=== PATIENT | female | born 1950 | race Caucasian/White ===

== ENCOUNTER 2020-06-11 15:02 | Outpatient (CLI) | payer MEDICARE, MEDICAID, SELFPAY ==
--- NOTE | 2020-06-11 14:45 | DI.RAD_ITS ---
EXAM: XR SHOULDER RT COMPLETE 2+V CLINICAL HISTORY: right shoulder pain TECHNIQUE: COMPARISON: No exams were available for comparison FINDINGS: Two views were obtained. There is severe loss of the cartilaginous joint space of the glenohumeral j oint. There is subchondral sclerosis and flattening of the adjacent bones. There are very prominent marginal osteophytes of the acetabulum and humeral head. Mild hypertrophic degenerative changes of the AC joint noted as well. IMPRESSION: Severe DJD glenohumeral joint. RADIATION DOSE DELIVERED: Total DLP
== END 2020-06-11 15:03 | disposition home or self-care (01) ==
LOC: DIORS 15:03
PROVIDERS: PCP Neuromusculoskeletal Medicine & OMM; Referring Provider Neuromusculoskeletal Medicine & OMM; Visit Provider Student in an Organized Health Care Education/Training Program
DX: M19.011 Primary osteoarthritis, right shoulder (principal); M25.511 Pain in right shoulder; M75.21 Bicipital tendinitis, right shoulder; I10 Essential (primary) hypertension
CPT/HCPCS: 99203; 73030

== ENCOUNTER 2021-10-06 08:00 | Day surgery (SDC) | payer MEDICARE, MEDICAID, SELFPAY ==
[2021-10-06] MEDS: Tropicam./Phenyleph. (1/2.5%) 5 ML BTL OD ×3 (08:43→08:53)
[2021-10-06 08:49] VITALS: BP 144/81; PULSE 94; RESP 18; TEMP 36.1; O2SAT 99
--- NOTE | 2021-10-06 09:23 | W.ANESPRE ---
General Info Date of Service Date Performed: 10/06/21 Height: 5 ft 2 in Weight: 124.3 kg Body Mass Index (BMI): 50.1 Surgical Procedure: Operation Date: 10/06/21 10:40 Proposed Procedure Side Surgeon p Cataract Extraction with IOL Implant Right Nito Kelly MD Meds Allergies and Home Medications Allergies Allergy/AdvReac Type Severity Reaction Status Date / Time Penicillins Allergy Intermediate Verified 10/06/21 08:41 Home Medication Medication Instructions Recorded bupropion HCl 300 mg 24 hr tablet, 300 mg PO QAM 06/11/20 extended release duloxetine 60 mg capsule,delayed 60 mg PO DAILY 06/11/20 release oxybutynin chloride 5 mg tablet 5 mg PO DAILY 06/11/20 pantoprazole 40 mg tablet,delayed 40 mg PO DAILY 06/11/20 release Current Visit Medications: Current Medications Generic Name Dose Route Start Last Admin Trade Name Freq PRN Reason Stop Dose Admin Acetaminophen 1,000 mg 10/06/21 06:00 Acetaminophen 500 Mg Tab PO Q4H PRN PRN Miscellaneous Medication 0 ml 10/06/21 06:00 Prednisolone 1%, Moxifloxacin 0.5%, Nepafenac 0.1% 5ml Btl OD DIRECTED DIGNA Miscellaneous Medication 0 ml 10/06/21 06:00 10/06/21 08:53 Tropicam./Phenyleph. 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 Spontaneous ecchymosis R23.3 Degenerative arthritis of right shoulder region M19.011 Biceps tendonitis on right M75.21 Medical History Medical History Hx of abscess of skin and subcutaneous tissue glutes Surgical History Surgical History (Updated 10/06/21 @ 08:51 by Marie Presley) History of carpal tunnel release of both wrists Hx of cholecystectomy Hx of shoulder replacement Hx of tubal ligation Tobacco Smoking/Tobacco Use Status: Never Alcohol Alcohol Intake: never Substance Use Substance use: Never Substance use type: does not use Vital Signs and Lab Results Vital Signs Most Recent Vital Signs in EMR: Most Recent Vital Signs Temp Pulse Resp BP Pulse Ox 36.1 C L 94 H 18 144/81 H 99 10/06/21 08:49 10/06/21 08:49 10/06/21 08:49 10/06/21 08:49 10/06/21 08:49 Lab Results Blood Type / Crossmatch: No Data to Display Complete Blood Count: No Data to Display Complete Metabolic Panel: No Data to Display Liver Function Panel: No Data to Display Coagulation Panel: No Data to Display Cardiac Panel: No Data to Display Arterial Blood Gas: No Data to Display Venous Blood Gas: No Data to Display Pancreas Panel: No Data to Display Thyroid Panel: No Data to Display Infectious Disease: No Data to Display Blood Cultures: No Data to Display Toxicology Panel: No Data to Display Anesthesia Assessment and Plan Anesthesia History Personal History: No History of Anesthesia Complications Family History: No Family History of Anesthesia Complications Exercise Tolerance Exercise Tolerance: Metabolic Equivalents<4 Pertinent Negatives Pertinent Negatives: No Symptoms of GERD, No Major Cardiovascular Symptoms or Complaints and No Major Pulmonary Symptoms or Complaints Cardiac & Pulmonary Exam Cardiac Exam: Normal S1/S2 Heart Sounds Pulmonary Exam: Clear Bilateral Breath Sounds Implantable Cardiac Device Does patient have a Pacemaker or an ICD?: No Airway Exam Known Difficult Airway: No Mallampati Class: 3 Mouth Opening: Normal (> 3cm) Thyromental Distance: Greater than 3 cm Neck Range of Motion: Full ROM Neck Circumference: Normal Teeth Condition: Normal Dentition and Loose or Chipped ASA Classification ASA Score: ASA 3 Emergency Case?: No NPO Status NPO Status: NPO Clears >2 hours, Solids >8 hours Anesthesia Plan Resuscitation Status: Full Code Anesthesia Technique: MAC Anesthesia Airway Planned: Natural Airway Monitors Used: Standard Monitors
[2021-10-06 09:45] VITALS: BMI 50.1
[2021-10-06] MEDS: Povidone-Iodine Ophth 30 ML BTL (09:53)
[2021-10-06] MEDS: Lidocaine 2% Jelly 6 ML SYR (09:54)
[2021-10-06] MEDS: Tetracaine 0.5% 4 ML BTL OD (10:00)
[2021-10-06] MEDS: Balanced Salt Soln.-PLUS 500 ML BAG (10:01)
[2021-10-06] MEDS: Duovisc Viscoelastic System EACH 1 EACH (10:04)
[2021-10-06 10:25] VITALS: BP 133/63; PULSE 100; RESP 18; TEMP 36.5; O2SAT 97
--- NOTE | 2021-10-06 10:25 | W.PM.DSUDISC ---
Discharge Plan Disposition Patient Disposition: HOME Condition: Good Discharge Details Attending Provider: Nito Kelly Primary Care Provider: Adrien Barillas [place] Meds and New Rx's Prescriptions: No Action bupropion HCl 300 mg tablet extended release 24 hr 300 mg PO QAM duloxetine 60 mg capsule,delayed release(DR/EC) 60 mg PO DAILY oxybutynin chloride 5 mg tablet 5 mg PO DAILY pantoprazole 40 mg tablet,delayed release (DR/EC) 40 mg PO DAILY Discharge Instructions Stand Alone Forms: Post-op Topical Cataract, Luz Marina Daniel ([facility]) Discharge Orders Discharge Orders: Discharge Order (Routine); Ordered 10/06/21 Ordered By: Nito Kelly DS: Diagnosis Discharge Diagnosis (1) Nuclear sclerotic cataract of right eye: Status: Resolved
--- NOTE | 2021-10-06 10:26 | ROE_ITS ---
Date of service: 10/06/21 Time of Service: 10:26 Operative Note Operative Note DATE OF PROCEDURE: 10/06/21 PRE-OP DIAGNOSIS: Nuclear cataract, right eye POST-OP DIAGNOSIS: same PROCEDURE: Cataract extraction using phacoemulsification with intraocular lens implant, right eye SURGEON: Nito Kelly ANESTHESIA TYPE: Local By Surgeon and MAC Refer to Anesthesia Record ESTIMATED BLOOD LOSS: 0 PATHOLOGY: none sent COMPLICATIONS: None Patient was transported to: same day Patient's condition: stable Implants: Philip & Philip/ROBER Tecnis [id number] Indications: Progressive visual loss due to cataract, right eye Procedure Description: CATARACT SURGERY OPERATIVE REPORT PREOPERATIVE DIAGNOSIS: 1. Nuclear cataract, right eye POSTOPERATIVE DIAGNOSIS: Same OPERATION: 1. Cataract extraction using phacoemulsification with posterior chamber intraocular lens implant, right eye. IOL: IOL [employer] Associate Professor/Model: Philip & Philip / ROBER Tecnis [id number] IOL Power: + 17.5 diopters IOL Serial Number: [id number] Optic Diameter: 6.0mm Haptic/Overall Diameter: 13.0mm PHACO INFO: LonnyG-clusterurion Vision System with OZil and Active Fluidics Cumulative Dispersed Energy (CDE): 7.96 seconds SURGEON: Nito Kelly MD, TOMAS ANESTHESIA: Monitored Anesthesia Care (MAC), with local sub-tenon's anesthetic infiltration COMPLICATIONS: None SPECIMENS: None INDICATIONS FOR PROCEDURE: Patient is a 71-year-old lady with history of diminished visual acuity in her right eye secondary to the development of significant nuclear cataract. The option of cataract surgery was offered to the patient and she felt she was symptomatic enough that she wished to proceed. PROCEDURE: The correct surgical eye was identified and marked as the right eye and the pupil was dilated in the preoperative area using mydriatics and cycloplegics. The dilated pupil size was 7.0 mm. She elected to proceed without oral sedation. The patient elected to proceed without oral sedation. The patient was brought to the operating room where cardiopulmonary monitoring was instituted and surgical time-out was performed, confirming the correct operative eye and IOL power. Topical anesthesia was administered and ophthalmic povidone-iodine 5% was instilled into the conjunctival fornices. Lidocaine gel was applied to the cornea and the joey-ocular area was prepped with Betadine 10% solution and draped in the usual sterile fashion for intraocular surgery, including an aperture drape. A Tegaderm transparent film dressing was cut in half and used to cover the lashes and lid margins. Care was taken to sequester the lashes and lid margins under the Tegaderm dressing. A lid speculum was placed between the lids of the operative eye and the Lonny Lux[employer] Revalia operating microscope was maneuvered into position. Alfreda scissors were then used to make a conjunctival buttonhole approximately 6mm posterior to the limbus in the inferonasal quadrant. Blunt dissection was carried out to expose bare sclera, and a blunt-tipped sub-tenon?s anesthesia cannula was introduced and passed posteriorly along the globe where non- preserved plain lidocaine was injected into posterior sub-Tenon?s space. A sideport knife was used to make a paracentesis port inferotemporally. Intraocular phenylephrine/lidocaine was injected into the anterior chamber. The anterior chamber was filled with viscoelastic. A keratome knife was used to construct a 2-plane near-clear corneal tunnel extending 2.0mm into clear cornea superiorly. A flap was raised on the anterior capsule and capsulorhexis forceps were used to complete a continuous curvilinear capsulorhexis of 5.0 mm. Balanced salt solution was then used to perform cortical cleaving hydrodissection and nuclear hydrodelineation until the lens could be freely rotated within the capsular bag. The lens nucleus was then disassembled and removed within the capsular bag and iris plane using phacoemulsification. Residual cortical material was removed using the I/A handpiece. The posterior capsule was carefully polished to remove as much residual lens epithelial cells as safely possible. The capsular bag was then inflated and the anterior chamber deepened with viscoelastic. The lens implant described above was inserted into the capsular bag using the ROBER [place] Injector. A Kuglen hook was used to dial the IOL into position. Residual viscoelastic was then removed first from posterior to the IOL, then fr om the anterior chamber using the I/A handpiece. The lens implant was noted to center nicely within the capsular bag. The incisions were stromally hydrated, and the anterior chamber was reformed using BSS. Then 0.5cc of moxifloxacin 1.0mg/ml were injected into the capsular bag and anterior chamber. The incisions were checked with a Weck spear and found to be secure. Several drops of ophthalmic povidone-iodine 5% were then applied to the eye followed by two drops of Imprimis combination prednisolone/moxifloxacin/nepafenac solution. The drapes were removed and a clear plastic protective eye shield was placed over the eye. The patient was then returned to Same Day Surgery in stable condition.
--- NOTE | 2021-10-06 10:52 | W.ANESPOSTOP ---
Postoperative Evaluation Date, Time and Location Date Performed: 10/06/21 Time Performed: 10:52 Patient Location: Day Surgery Unit Vital Signs Most Recent Imported Vital Signs: Most Recent Vital Signs Temp Pulse Resp BP Pulse Ox 36.5 C 100 H 18 133/63 97 10/06/21 10:25 10/06/21 10:25 10/06/21 10:25 10/06/21 10:25 10/06/21 10:25 Pain Score Most Recent Pain Score: Most Recent Pain Score Pain Level 0 10/06/21 10:25 Assessment Mental Status: Awake (Alert & Oriented to Patient Baseline) Airway and Respiratory Function: Patent airway with normal (patient baseline) respiratory exam Cardiovascular Function: Hemodynamically Stable Hydration Status: Adequately Hydrated Nausea & Vomiting: No Nausea or Vomiting Pain: Pt. Denies Any Pain Peripheral Nerve Block: Patient did not receive a nerve block
== END 2021-10-06 10:47 | disposition home or self-care (01) ==
LOC: SUR 08:01
PROVIDERS: PCP Neuromusculoskeletal Medicine & OMM; Visit Provider Ophthalmology
PROC: (CPT 66984; principal; 2021-10-06 10:30)
DX: H25.11 Age-related nuclear cataract, right eye (principal); I10 Essential (primary) hypertension; G47.33 Obstructive sleep apnea (adult) (pediatric); E78.5 Hyperlipidemia, unspecified; K21.9 Gastro-esophageal reflux disease without esophagitis
CPT/HCPCS: 66984; V2632

== ENCOUNTER 2021-10-20 07:15 | Day surgery (SDC) | payer MEDICARE, MEDICAID, SELFPAY ==
--- NOTE | 2021-10-20 07:27 | W.ANESPRE ---
General Info Date of Service Date Performed: 10/20/21 Height: 5 ft 2 in Weight: 124.3 kg Body Mass Index (BMI): 50.1 Surgical Procedure: Operation Date: 10/20/21 09:40 Proposed Procedure Side Surgeon p Cataract Extraction with IOL Implant Left Nito Kelly MD Meds Allergies and Home Medications Allergies Allergy/AdvReac Type Severity Reaction Status Date / Time Penicillins Allergy Intermediate Verified 10/17/21 11:41 Home Medication Medication Instructions Recorded bupropion HCl 300 mg 24 hr tablet, 300 mg PO QAM 06/11/20 extended release duloxetine 60 mg capsule,delayed 60 mg PO DAILY 06/11/20 release oxybutynin chloride 5 mg tablet 5 mg PO DAILY 06/11/20 pantoprazole 40 mg tablet,delayed 40 mg PO DAILY 06/11/20 release Current Visit Medications: Current Medications Generic Name Dose Route Start Last Admin Trade Name Freq PRN Reason Stop Dose Admin Acetaminophen 1,000 mg 10/20/21 06:00 Acetaminophen 500 Mg Tab PO Q4H PRN PRN Miscellaneous Medication 0 ml 10/20/21 06:00 Prednisolone 1%, Moxifloxacin 0.5%, Nepafenac 0.1% 5ml Btl OS DIRECTED DIGNA Miscellaneous Medication 0 ml 10/20/21 06:00 Tropicam./Phenyleph. 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 Spontaneous ecchymosis R23.3 Degenerative arthritis of right shoulder region M19.011 Biceps tendonitis on right M75.21 Medical History Medical History Hx of abscess of skin and subcutaneous tissue glutes Surgical History Surgical History History of carpal tunnel release of both wrists Hx of cholecystectomy Hx of shoulder replacement Hx of tubal ligation Tobacco Smoking/Tobacco Use Status: Never Alcohol Alcohol Intake: never Substance Use Substance use: Never Substance use type: does not use Vital Signs and Lab Results Lab Results Blood Type / Crossmatch: No Data to Display Complete Blood Count: No Data to Display Complete Metabolic Panel: No Data to Display Liver Function Panel: No Data to Display Coagulation Panel: No Data to Display Cardiac Panel: No Data to Display Arterial Blood Gas: No Data to Display Venous Blood Gas: No Data to Display Pancreas Panel: No Data to Display Thyroid Panel: No Data to Display Infectious Disease: No Data to Display Blood Cultures: No Data to Display Toxicology Panel: No Data to Display Anesthesia Assessment and Plan Anesthesia History Personal History: No History of Anesthesia Complications Family History: No Family History of Anesthesia Complications Exercise Tolerance Exercise Tolerance: Metabolic Equivalents<4 Pertinent Negatives Pertinent Negatives: No Symptoms of GERD, No Major Cardiovascular Symptoms or Complaints, No Major Pulmonary Symptoms or Complaints and No History of CVA/TIA Cardiac & Pulmonary Exam Cardiac Exam: Normal S1/S2 Heart Sounds Pulmonary Exam: Clear Bilateral Breath Sounds Implantable Cardiac Device Does patient have a Pacemaker or an ICD?: No Airway Exam Known Difficult Airway: No Mallampati Class: 3 Mouth Opening: Normal (> 3cm) Thyromental Distance: Greater than 3 cm Neck Range of Motion: Full ROM Neck Circumference: Normal Teeth Condition: Loose or Chipped ASA Classification ASA Score: ASA 3 Emergency Case?: No NPO Status NPO Status: NPO Clears >2 hours, Solids >8 hours Anesthesia Plan Resuscitation Status: Full Code Anesthesia Technique: MAC Anesthesia Airway Planned: Natural Airway Monitors Used: Standard Monitors Preoperative Comments:: No MKO. Reports good experience last visit. No change in health since last visit.
[2021-10-20 07:42] VITALS: BP 149/75; PULSE 111; RESP 17; TEMP 36.3; O2SAT 97
[2021-10-20] MEDS: Tropicam./Phenyleph. (1/2.5%) 5 ML BTL OS ×3 (07:53→08:10)
[2021-10-20 08:01] VITALS: BMI 50.1
[2021-10-20] MEDS: Tetracaine 0.5% 4 ML BTL OS (08:59)
[2021-10-20] MEDS: Povidone-Iodine Ophth 30 ML BTL (08:59)
[2021-10-20] MEDS: Duovisc Viscoelastic System EACH 1 EACH (09:05)
[2021-10-20] MEDS: Lidocaine 2% Jelly 6 ML SYR (09:05)
[2021-10-20] MEDS: Balanced Salt Soln.-PLUS 500 ML BAG (09:05)
[2021-10-20 09:28] VITALS: BP 148/92; PULSE 102; RESP 16; TEMP 36.6; O2SAT 96
--- NOTE | 2021-10-20 09:30 | PDOC.DSDIS_ITS ---
Discharge Plan Disposition Patient Disposition: HOME Condition: Good Discharge Details Attending Provider: Nito Kelly Primary Care Provider: Adrien Barillas [place] Meds and New Rx's Prescriptions: No Action bupropion HCl 300 mg tablet extended release 24 hr 300 mg PO QAM duloxetine 60 mg capsule,delayed release(DR/EC) 60 mg PO DAILY oxybutynin chloride 5 mg tablet 5 mg PO DAILY pantoprazole 40 mg tablet,delayed release (DR/EC) 40 mg PO DAILY Discharge Instructions Stand Alone Forms: Post-op Topical Cataract, Luz Marina Alexandreey ([facility]) Discharge Orders Discharge Orders: Discharge Order (Routine); Ordered 10/20/21 Ordered By: Nito Kelly DS: Diagnosis Discharge Diagnosis (1) Nuclear sclerotic cataract of left eye: Status: Resolved
--- NOTE | 2021-10-20 09:31 | W.PM.OP ---
Date of service: 10/20/21 Time of Service: 09:31 Operative Note Operative Note DATE OF PROCEDURE: 10/20/21 PRE-OP DIAGNOSIS: Nuclear cataract, left eye with the rule astigmatism, left eye POST-OP DIAGNOSIS: same PROCEDURE: Cataract extraction using phacoemulsification with toric intraocular lens implant, right eye SURGEON: Nito Kelly Refer to Anesthesia Record PATHOLOGY: none sent COMPLICATIONS: None Patient was transported to: same day Patient's condition: stable Implants: Philip and Philip Vision Tecnis Toric Intraocular Lens Indications: Progressive decreased vision due to cataract, right eye, with corneal astigmatism Procedure Description: [] CATARACT SURGERY OPERATIVE REPORT PREOPERATIVE DIAGNOSIS: Nuclear cataract, left eye With the rule astigmatism, left eye POSTOPERATIVE DIAGNOSIS: Same OPERATION: Cataract extraction using phacoemulsification with posterior chamber toric intraocular lens implant, right eye. IOL: IOL Hat [employer]ovator/Model: [employer] Vision Tecnis Toric [id number] IOL Power: + 17.0 diopters sphere, + 3.00 cylinder IOL Serial Number: [id number] Optic Diameter: 6.0mm Haptic/Overall Diameter: 13.00mm PHACO INFO: Lonny Brilliant.orgurion Vision System with OZil and Active Fluidics Cumulative Dispersed Energy (CDE): 7.04 seconds SURGEON: Nito Kelly MD, TOMAS ANESTHESIA: Monitored Anesthesia Care (MAC), with local sub-tenon's anesthetic infiltration COMPLICATIONS: None SPECIMENS: None INDICATIONS FOR PROCEDURE: The patient is a 71-year-old lady with history of diminished visual acuity in both eyes secondary to development of bilateral cataract. She has already undergone cataract surgery in her right eye and is doing well postoperatively. She now presents for cataract surgery in the left eye with a toric intraocular lens implant due to her moderate amount of with the rule astigmatism. PROCEDURE: The correct surgical eye was identified and marked as the right eye and the pupil was dilated in the preoperative area using mydriatics and cycloplegics. The dilated pupil size was 5 mm mm. With the patient in the seated position, topical anesthetic was applied and a surgical marker was used to nina the limbus at 6:00. A Surgilum Robomarker was then used to nina the 0/180 degree reference axis. The patient elected to proceed without oral sedation. The patient was brought to the operating room where cardiopulmonary monitoring was instituted and surgical time-out was performed, confirming the correct operative eye and IOL power. Topical anesthesia was administered and ophthalmic povidone-iodine 5% was instilled into the conjunctival fornices. Lidocaine gel was applied to the cornea and the joey-ocular area was prepped with Betadine 10% solution and draped in the usual sterile fashion for intraocular surgery, including an aperture drape. A Tegaderm transparent film dressing was cut in half and used to cover the lashes and lid margins. Care was taken to sequester the lashes and lid margins under the Tegaderm dressing. A lid speculum was placed between the lids of the operative eye and the Collette-Katherine operating microscope was maneuvered into position. Alfreda scissors were then used to make a conjunctival buttonhole approximately 6mm posterior to the limbus in the inferonasal quadrant. Blunt dissection was carried out to expose bare sclera, and a blunt-tipped sub-tenon?s anesthesia cannula was introduced and passed posteriorly along the globe where non-preserved plain lidocaine was injected into posterior sub-Tenon?s space. A corneal ring gauge and axis marker were then used to nina the 354 degree position for the main phaco incision.and the 84/264 degree axis for alignment of the toric IOL. A sideport knife was used to make a paracentesis port at the 7:00 postion and intraocular phenylephrine/lidocaine was injected into the anterior chamber. The anterior chamber was filled with viscoelastic.. A keratome knife was used to create a half-thickness groove at the limbus and then to construct a three-plane near-clear corneal tunnel extending 2.0mm into clear cornea at the 354 degree axis. . A flap was raised on the anterior capsule and capsulorhexis forceps were used to complete a continuous curvilinear capsulorhexis of 4.8 mm. Balanced salt solution was then used to perform cortical cleaving hydrodissection and nuclear hydrodelineation until the lens could be freely rotated within the capsular bag. The lens nucleus was then disassembled and removed within the capsular bag and iris plane using phacoemulsification. Residual cortical material was removed using the 45-degree angled silicone I/A tip with 0.3mm port. The posterior capsule was carefully polished to remove as much residual lens epithelial cells as safely possible. The capsular bag was then inflated and the anterior chamber deepened with viscoelastic. The lens implant described above was inserted into the capsular bag using the preloaded Philip & Philip simplicity. IOL injector. A Kuglen hook was used to dial the IOL into position, about 10 degrees counterclockwise of its final alignment. Residual viscoelastic was then removed first from posterior to the IOL, then from the anterior chamber using the I/A handpiece. The I/A handpiece was then used to dial the IOL to the target axis. The lens implant was noted to center nicely within the capsular bag, with the toric IOL trevino aligned at the 84/264 degree axis. The incisions were stromally hydrated, and the anterior chamber was reformed using BSS. Then 0.5cc of moxifloxacin 1.0mg/ml were injected into the capsular bag and anterior chamber. The incisions were checked with a Weck spear and found to be secure. Several drops of ophthalmic povidone-iodine 5% were then applied to the eye followed by two drops of Imprimis combination gatifloxacin/dexamethasone solution. The drapes were removed and a clear plastic protective eye shield was placed over the eye. The patient was then returned to Same Day Surgery in stable condition.
--- NOTE | 2021-10-20 09:41 | W.ANESPOSTOP ---
Postoperative Evaluation Date, Time and Location Date Performed: 10/20/21 Time Performed: 09:41 Patient Location: Day Surgery Unit Vital Signs Most Recent Imported Vital Signs: Most Recent Vital Signs Temp Pulse Resp BP Pulse Ox 36.6 C 102 H 16 148/92 H 96 10/20/21 09:28 10/20/21 09:28 10/20/21 09:28 10/20/21 09:28 10/20/21 09:28 Pain Score Most Recent Pain Score: Most Recent Pain Score Pain Level 0 10/20/21 09:28 Assessment Mental Status: Awake (Alert & Oriented to Patient Baseline) Airway and Respiratory Function: Patent airway with normal (patient baseline) respiratory exam Cardiovascular Function: Hemodynamically Stable Hydration Status: Adequately Hydrated Nausea & Vomiting: No Nausea or Vomiting Pain: Pt. Denies Any Pain Peripheral Nerve Block: Patient did not receive a nerve block
--- NOTE | 2021-10-20 11:06 | ROE_ITS ---
Date of service: 10/20/21 Time of Service: 09:31 Operative Note Operative Note DATE OF PROCEDURE: 10/20/21 PRE-OP DIAGNOSIS: Nuclear cataract, left eye With the rule astigmatism, left eye POST-OP DIAGNOSIS: same PROCEDURE: [employer]nis Toric Intraocular Lens SURGEON: Nito Kelly ANESTHESIA TYPE: Local By Surgeon and MAC Refer to Anesthesia Record PATHOLOGY: none sent COMPLICATIONS: None Patient was transported to: same day Patient's condition: stable Implants: Philip [employer] Vision Tecnis Toric Intraocular Lens Indications: Progressive decreased vision due to cataract, left eye, with corneal astigmatism Procedure Description: CATARACT SURGERY OPERATIVE REPORT PREOPERATIVE DIAGNOSIS: Nuclear cataract, left eye With the rule astigmatism, left eye POSTOPERATIVE DIAGNOSIS: Same OPERATION: Cataract extraction using phacoemulsification with posterior chamber toric intraocular lens implant, left eye. IOL: IOL Rehabilitation Attendant/Model: J[employer]J Vision Tecnis Toric [id number] IOL Power: + 17.0 diopters sphere, 3.00 cylinder IOL Serial Number: [id number] Optic Diameter: 6.0mm Haptic/Overall Diameter: 13.00mm PHACO INFO: Lonny [employer] Vision System with OZil and Active Fluidics Cumulative Dispersed Energy (CDE): 7.04 seconds SURGEON: Nito Kelly MD, TOMAS ANESTHESIA: Monitored Anesthesia Care (MAC), with local sub-tenon's anesthetic infiltration COMPLICATIONS: None SPECIMENS: None INDICATIONS FOR PROCEDURE: The patient is a 71-year-old lady with history of diminished visual acuity in both eyes secondary to development of bilateral nuclear cataract. She has already undergone cataract surgery in the right eye and is doing well postoperatively. She now presents for cataract surgery in the left eye with a toric intraocular lens implant to minimize her postoperative with the rule astigmatism. PROCEDURE: The correct surgical eye was identified and marked as the left eye and the pupil was dilated in the preoperative area using mydriatics and cycloplegics. The di lated pupil size was 5.0 mm. With the patient in the seated position, topical anesthetic was applied and a surgical marker was used to nina the limbus at 6:00. A Surgilum Robomarker was then used to nina the 0/180 degree reference axis.= The patient elected to proceed without oral sedation. The patient was brought to the operating room where cardiopulmonary monitoring was instituted and surgical time-out was performed, confirming the correct operative eye and IOL power. Topical anesthesia was administered and ophthalmic povidone-iodine 5% was instilled into the conjunctival fornices. Lidocaine gel was applied to the cornea and the joey-ocular area was prepped with Betadine 10% solution and draped in the usual sterile fashion for intraocular surgery, including an aperture drape. A Tegaderm transparent film dressing was cut in half and used to cover the lashes and lid margins. Care was taken to sequester the lashes and lid margins under the Tegaderm dressing. A lid speculum was placed between the lids of the operative eye and the Lonny LuxOR Revaliat operating microscope was maneuvered into position. Alfreda scissors were then used to make a conjunctival buttonhole approximately 6mm posterior to the limbus in the inferonasal quadrant. Blunt dissection was carried out to expose bare sclera, and a blunt-tipped sub-tenon?s anesthesia cannula was introduced and passed posteriorly along the globe where non- preserved plain lidocaine was injected into posterior sub-Tenon?s space. A corneal ring gauge and axis marker were then used to nina the 354 degree position for the main phaco incision, and the 84/264 degree axis for alignment of the toric IOL. A sideport knife was used to make a paracentesis port superiorly. Intraocular phenylephrine/lidocaine was injected into the anterior chamber. The anterior chamber was then filled with viscoelastic. A keratome knife was used to create a half-thickness groove at the limbus and then to construct a three-plane near-clear corneal tunnel extending 2.0mm into clear cornea at the 354 degree axis. . A flap was raised on the anterior capsule and capsulorhexis forceps were used to complete a continuous curvilinear capsulor hexis of 4.8 mm. Balanced salt solution was then used to perform cortical cleaving hydrodissection and nuclear hydrodelineation until the lens could be freely rotated within the capsular bag. The lens nucleus was then disassembled and removed within the capsular bag and iris plane using phacoemulsification. Residual cortical material was removed using the 45-degree angled silicone I/A tip with 0.3mm port. The posterior capsule was carefully polished to remove as much residual lens epithelial cells as safely possible. The capsular bag was then inflated and the anterior chamber deepened with viscoelastic. The lens implant described above was inserted into the capsular bag using the ROBER Crawford Injector. A Kuglen hook was used to dial the IOL into position, about 10 degrees counterclockwise of its final alignment. Residual viscoelastic was then removed first from posterior to the IOL, then from the anterior chamber using the I/A handpiece. The I/A handpiece was then used to dial the IOL to the target axis. The lens implant was noted to center nicely within the capsular bag, with the toric IOL trevino aligned at the [] degree axis. The incisions were stromally hydrated, and the anterior chamber was reformed using BSS. Then 0.5cc of moxifloxacin 1.0mg/ml were injected into the capsular bag and anterior chamber. The incisions were checked with a Weck spear and found to be secure. Several drops of ophthalmic povidone-iodine 5% were then applied to the eye followed by two drops of Imprimis combination prednisolone/moxifloxacin/nepafenac solution. The drapes were removed and a clear plastic protective eye shield was placed over the eye. The patient was then returned to [facility] in stable condition.
== END 2021-10-20 09:57 | disposition home or self-care (01) ==
PROVIDERS: PCP Neuromusculoskeletal Medicine & OMM; Visit Provider Ophthalmology
PROC: (CPT 66984; principal; 2021-10-20 09:30)
DX: H25.12 Age-related nuclear cataract, left eye (principal); H52.202 Unspecified astigmatism, left eye
CPT/HCPCS: 66984; V2632

== ENCOUNTER 2023-07-12 16:36 | Emergency (ER) | payer MEDICARE, MEDICAID, SELFPAY ==
[2023-07-12 16:46] VITALS: BP 148/78; PULSE 97; RESP 16; TEMP 36.4; O2SAT 96
--- NOTE | 2023-07-12 17:30 | DI.CT_ITS ---
Exam(s) CT ABDOMEN PELVIS W EXAM: CT ABDOMEN PELVIS W CLINICAL HISTORY: left lower abdomen pain. TECHNIQUE: Imaging Protocol: Axial computed tomography images with coronal and sagittal reformatted images were created and reviewed CONTRAST MATERIAL: Intravenous: Omnipaque 350 Contrast volume:100 ml Oral: no COMPARISON: No exams were available for comparison FINDINGS: ABDOMEN and PELVIS: Exam is limited by patient body habitus. Lung Bases: No acute findings. Small hiatal hernia. Liver: Enlarged. Mild hepatic steatosis. No measurable mass. Gallbladder and biliary tract: Post cholecystectomy. No radiodense calculus or biliary dilation. Pancreas: Normal density. No abnormal calcifications or inflammatory process. No evidence of mass. Spleen: Normal. Kidneys: Normal size, contour and axis. No radiodense stones. No obstructive uropathy. No suspicious masses seen. Adrenal glands: No masses seen. Vasculature: Abdominal aorta non-dilated. Soft tissues: Intramuscular lipoma in the left abductor volodymyr muscle, incompletely visualized on thi s exam. Bladder: No gross wall thickening. No calculi.No focal mass. Bowel: No obstruction. Diverticulosis descending and sigmoid colon. No definite evidence of diverti culitis. Appendix normal. Peritoneal cavity: No ascites. No focal collection. Focal area of inflammation seen in the fat anter ior to the descending colon likely representing epiploic appendagitis. Bones: Degenerative changes in the spine and hips. Reproductive organs: Within normal limits. Lymph nodes: Unremarkable. IMPRESSION:: Epiploic appendagitis anterior to the descending colon. Diverticulosis without evidence of diverticulitis. RADIATION DOSE DELIVERED: 1,980.8mGy.cm Total DLP DATA REPOSITORY: All CT scans at this facility are submitted to the National Radiology Data Registry (NRDR) Dose Index Registry (DIR) with the [employer] [place] [employer] (ACR). RADIATION OPTIMIZATION: All CT scans at this facility use at least one of these dose optimization te chniques: automated exposure control; mA and/or kV adjustment per patient size (includes targeted exa ms where dose is matched to clinical indication); or iterative reconstruction.
--- NOTE | 2023-07-12 17:34 | ED.GENADUL_ITS ---
Discharge Plan Disposition Patient Disposition: Home Condition: Stable Discharge Details Clinical Impression: Diverticulitis, Abdominal pain Primary Care Provider: Tiara Franklin ED Provider: Sal Shah Home Meds and New Rx's Prescriptions: New metronidazole 500 mg tablet 500 mg PO Q8H Qty: 21 0RF levofloxacin 750 mg tablet 750 mg PO DAILY Qty: 5 0RF Continued bupropion HCl 300 mg tablet extended release 24 hr 300 mg PO QAM duloxetine 60 mg capsule,delayed release(DR/EC) 60 mg PO DAILY oxybutynin chloride 5 mg tablet 5 mg PO DAILY Hold Instructions: Adverse Reaction pantoprazole 40 mg tablet,delayed release (DR/EC) 40 mg PO DAILY Discharge Instructions Additional Instructions: Your CAT scan showed you have mild diverticulitis Take the antibiotics as prescribed You can take 600 mg of ibuprofen and 1000 mg of Tylenol as needed every 6 hours. Do not exceed 3000 mg of Tylenol in a 24-hour period If not better within a week follow-up with your primary care provider If you feel more ill, have severe worsening pain or new symptoms such as high fevers or persistent vomiting return to the emergency department for reevaluation HPI General Mode of arrival: ambulatory . Date/Time Provider Initiated Documentation: 07/12/23 17:14 . Limitations to Documentation: no limitations . Information obtained by: patient . History of Present Illness 72 year old F presents to the emergency department with the chief complaint of Abdominal pain, described as moderate, Quality is described as aching, and is localized to the abdomen. Patient reports no radiation. Patient started experiencing this day(s) (3) and it has been constant. No relieving factors improve symptom(s), No exacerbating factors reported . Patient notes no other symptoms.; denies chest pain and shortness of breath. Patient did receive the following treatments prior to arrival, none Related Data Home Medications Medication Instructions Recorded Confirmed bupropion HCl 300 mg 24 hr tablet, 300 mg PO QAM 06/11/20 07/12/23 extended release duloxetine 60 mg capsule,delayed 60 mg PO DAILY 06/11/20 07/12/23 release oxybutynin chloride 5 mg tablet 5 mg PO DAILY 06/11/20 07/12/23 pantoprazole 40 mg tablet,delayed 40 mg PO DAILY 06/11/20 07/12/23 release levofloxacin 750 mg tablet 750 mg PO DAILY #5 tabs 07/12/23 metronidazole 500 mg tablet 500 mg PO Q8H #21 tabs 07/12/23 Previous Rx's Medication Instructions Recorded levofloxacin 750 mg tablet 750 mg PO DAILY #5 tabs 07/12/23 metronidazole 500 mg tablet 500 mg PO Q8H #21 tabs 07/12/23 Allergies Allergy/AdvReac Type Severity Reaction Status Date / Time Penicillins Allergy Intermediate Skin Rash Verified 07/12/23 16:45 General Stated Complaint: Abd Prob FRANK: 3 Review of Systems All systems reviewed & are unremarkable except as noted in HPI and below Constitutional Constitutional: Denies chills, Denies fever(s) and Denies weakness Cardiovascular Cardiovascular: Denies chest pain and Denies dyspnea Respiratory Respiratory: Denies cough and Denies dyspnea Gastrointestinal Gastrointestinal: Reports abdominal pain, Denies nausea and Denies vomiting Genitourinary Genitourinary: Denies dysuria Musculoskeletal Musculoskeletal: Denies joint swelling Neurologic Neurologic: Denies weakness Psychiatric Psychiatric: Denies depression Exam Const General: no acute distress Orientation: alert HENMT Head: normal to inspection Ears: external ears normal General nose exam: external nose normal Mouth: moist mucous membranes Eyes General: appearance normal, both eyes and all related structures Neck Neck: normal visual inspection Resp Effort & Inspection: normal respiratory effort and able to speak in complete sentences Auscultation: clear to auscultation bilaterally Cardio Jugular venous pressure: no JVD Rate: regular rate Heart Sounds: no murmurs GI Palpation: soft, not firm, no guarding and tender Skin General skin exam: no rashes or lesions noted Neuro General: patient alert and patient oriented x3 Extrem General: normal to inspection Psych Mental Status: mental status grossly normal Course Vital Signs Vital signs: Vital Signs Temperature 36.4 C L 07/12/23 16:46 Pulse 97 H 07/12/23 16:46 Respiratory Rate 16 07/12/23 16:46 Blood Pressure 148/78 H 07/12/23 16:46 Pulse Oximetry 96 07/12/23 16:46 Temperature 36.4 C L 07/12/23 16:46 Temperature Source Temporal Artery Scan 07/12/23 16:46 Pulse 97 H 07/12/23 16:46 Respiratory Rate 16 07/12/23 16:46 Respiratory Effort Normal, Non-Labored 07/12/23 16:49 Blood Pressure 148/78 H 07/12/23 16:46 Blood Pressure Position Sitting 07/12/23 16:46 Pulse Oximetry 96 07/12/23 16:46 Oxygen Delivery Method Room Air 07/12/23 16:46 Oxygen Flow Rate 0 07/12/23 16:46 Pain Level 7 07/12/23 16:46 Medical Decision Making 72-year-old female who has a history of GERD, obstructive sleep apnea, prior cholecystectomy, had a D&C for vaginal bleeding on June 13 at [facility] which was uneventful per patient, and had been doing well until Wednesday when she started having some left lower abdominal pain. She denies any vomiting, no fevers, no vaginal bleeding or discharge. She appears well on exam in no distress, she localizes the pain to the left lower quadrant, abdomen is not firm or distended, no guarding or rebound. Given location of her pain will obtain CBC, CMP, lipase and obtain CT abdomen pelvis to evaluate for possible diverticulitis, less likely hernia. Labs unremarkable CT shows either epiploic appendagitis versus diverticulitis otherwise no emergent findings, advised she likely has a lipoma as well based on CT read. She is feeling better and stable for discharge will start her on levofloxacin and Flagyl. Advised to follow-up with her PCP and return precautions given Differential Diagnosis Differential Diagnosis: Diverticulitis, hernia Medical Records Medical records reviewed: Yes I reviewed the patient's medical records. Imaging Data Radiologic Study: Attestation: I personally reviewed and interpreted this imaging study as follows: Imaging: CT Scan Radiologist's impression: IMPRESSION: 1. Findings most consistent with epiploic appendagitis in the distal descending colon. Mild diverticulitis considered less likely. No perforation or abscess. 2. Moderate distal colonic diverticulosis. 3. Hepatomegaly and fatty infiltration of the liver. 4. Incompletely visualized intramuscular fatty mass in the proximal left adductor volodymyr musculature. Favor intramuscular lipoma although correlate clinically for palpable mass or perception of increasing mass effect, consider nonemergent MRI evaluation for full visualization/characterization. 5. Additional nonemergent findings detailed abov e. Lab Data Lab results reviewed: Yes I reviewed the patient's lab results. Quality:SDOH Health Related Social Needs: No Data to Display PFSH All Active Problems (Updated 07/12/23 @ 20:10 by Sal Shah MD) Abdominal pain (Acute) Diverticulitis (Chronic) Non-toxic uninodular goiter (Acute) Hyperlipidemia (Acute) Obesity (Chronic) PTSD (post-traumatic stress disorder) (Acute) Depressive disorder (Chronic) Insomnia (Acute) MELODY (obstructive sleep apnea) (Chronic) Hypertensive disorder (Chronic) GERD (gastroesophageal reflux disease) (Chronic) Tachycardia (Acute) RUQ pain (Acute) History of total knee arthroplasty (Acute) Inflammatory dermatosis (Acute) Spontaneous ecchymosis (Acute) Degenerative arthritis of right shoulder region (Acute) Biceps tendonitis on right (Acute) Medical History (Updated 07/12/23 @ 20:10 by Sal Shah MD) Hx of abscess of skin and subcutaneous tissue glutes Surgical History (Updated 10/20/21 @ 09:31 by Nito Kelly MD) Hx of tubal ligation Hx of cholecystectomy History of carpal tunnel release of both wrists Hx of shoulder replacement Social History Smoking/Tobacco Use Status: Never Smoking risk assessment performed?: Yes Alcohol Intake: never Drug use: Never Substance use type: does not use Current gender identity: female Do you feel safe at home: Yes (daughter lives with pt) Do you feel safe in your relationship?: Yes
[2023-07-12 17:53] LABS: Abs Immature Grans 0.02 10^3/uL (0.0-0.06); Absolute Basophil Count 0.05 10^3/uL (0.0-0.2); Absolute Eosinophil Count 0.16 10^3/uL (0.0-0.7); Absolute Lymphocyte Count 1.86 10^3/uL (1.2-3.4); Absolute Monocyte Count 0.61 10^3/uL (0.1-0.8); Absolute Neutrophil Count 5.91 10^3/uL (1.2-6.7); Basophils % 0.6; Eosinophils % 1.9; HCT 43.3 % (36.0-46.0); HGB 14.4 g/dL (11.2-15.7); Immature Grans % 0.2; Lymphocytes % 21.6; MCH 28.2 pg (27.0-33.0); MCHC 33.3 % (32.0-36.0); MCV 85 fL (80-95); MPV 9.9 fL (8.0-11.0); Monocytes % 7.1; Neutrophils % 68.6; Platelet Count 294 10^3/uL (130-400); RBC 5.11 10^6/uL (3.93-5.22); RDW 13.7 % (11.7-14.6); RDW-SD 42.5 fL; WBC 8.61 10^3/uL (4.4-10.8)
[2023-07-12] MEDS: Normal Saline 1,000 ML 1000 ML IV (18:06)
[2023-07-12 18:08] LABS: ALT 20 U/L (14-59); AST 16 U/L (15-37); Albumin 3.5 g/dL (3.4-5.0); Alkaline Phosphatase 104 U/L (46-116); Anion Gap 9.2 mmol/L (3-11); BUN 12 mg/dL (7-18); Bilirubin, Total 0.5 mg/dL (0.2-1.0); CO2 27.8 mmol/L (21.0-32.0); Chloride 99 mmol/L (98-107); Estimated GFR 59.12 (mL/min/1.73m2); Glucose 106 mg/dL (74-106); Lipase 18 U/L (16-77); Magnesium 1.7 mg/dL (1.8-2.4); Potassium 4.1 mmol/L (3.5-5.1); Sodium 136 mmol/L (136-145); Total Protein 7.2 g/dL (6.4-8.2)
[2023-07-12] MEDS: Omnipaque 350 MG/ML 100 ML BTL IJ (18:46)
[2023-07-12] MEDS: Normal Saline - Diluent 50 ML VIAL IJ (18:46)
[2023-07-12] MEDS: Normal Saline Flush 10 ML SYR IVP (18:47)
--- NOTE | 2023-07-12 20:01 | DI.VRAD_ITS ---
PROCEDURE INFORMATION: Exam: CT Abdomen And Pelvis With Contrast Exam date and time: 07/12/2023 6:36 PM Age: 72 years old Clinical indication: Abdominal pain; Localized; Left lower quadrant (llq); Patient HX: Left lower abdomen pain TECHNIQUE: Imaging protocol: Computed tomography of the abdomen and pelvis with contrast. Radiation optimization: All CT scans at this facility use at least one of these dose optimization techniques: automated exposure control; mA and/or kV adjustment per patient size (includes targeted exams where dose is matched to clinical indication); or iterative reconstruction. Contrast material: OMNIPAQUE 350; Contrast volume: 100 ml; Contrast route: IV; COMPARISON: No relevant prior studies available. FINDINGS: Lungs: Mild atelectasis in the lung bases. Heart: Heart size normal. Diaphragm: Small hiatal hernia. Liver: Hepatomegaly measuring 23 cm craniocaudal. Mild-moderate fatty infiltration of the liver. Normal contour. No mass lesions. No intrahepatic biliary ductal dilatation. Gallbladder and bile ducts: Prior cholecystectomy with no significant dilatation of the common bile duct. Pancreas: Mild pancreatic atrophy without acute abnormality. No pancreatic ductal dilatation. Spleen: Normal. No splenomegaly. Adrenal glands: Normal. No adrenal mass. Kidneys and ureters: No acute abnormalities. No hydronephrosis or hydroureter. No urinary tract stones are identified. Stomach and bowel: The stomach is largely contracted. The small bowel is nondilated with no gross abnormality. Moderate distal colonic diverticulosis. There is pericolonic stranding at the distal descending colon anterior margin with an ovoid 19 x 9 x 25 mm fat density focus centered in the regional stranding favoring epiploic appendagitis. None of the diverticula appear specifically thick-walled and inflamed, and diverticulitis is considered less likely although not fully excluded. No perforation or abscess. Distal colon is largely contracted, likely accounting for the mild generalized wall thickening in this region. Appendix: The appendix is normal in caliber and demonstrates no evidence of appendicitis. Intraperitoneal space: No peritoneal free fluid or air. Vasculature: No acute process. No abdominal aortic aneurysm. Mild calcific atherosclerosis. Lymph nodes: No adenopathy. Urinary bladder: The urinary bladder is partially contracted without gross abnormality. Reproductive: Uterus is unremarkable. 9 mm cyst in the right ovary and 14 mm cyst in the left ovary which do not require further assessment. Bones/joints: No acute osseous abnormalities. Osteopenia. Multilevel severe disc degenerative changes in the lower thoracic spine and lumbar spine with grade 1 retrolisthesis T12-L1 and broad posterior spondylotic protrusion contributing to moderate canal stenosis. Soft tissues: Very small fatty umbilical hernia . No evidence of associated bowel herniation or strangulation. Fat density mass in the proximal medial left adductor volodymyr musculature, incompletely visualized, with the proximal portion measuring 6 cm AP x 3.1 cm transverse, and extending at least 7 cm craniocaudal. This causes asymmetric muscular expansion. There are internal bandlike muscular elements but no clear septation or soft tissue nodularity. Favoring intramuscular lipoma, however consider nonemergent pre and postcontrast MRI of the thigh for full visualization/characterization.. IMPRESSION: 1. Findings most consistent with epiploic appendagitis in the distal descending colon. Mild diverticulitis considered less likely. No perforation or abscess. 2. Moderate distal colonic diverticulosis. 3. Hepatomegaly and fatty infiltration of the liver. 4. Incompletely visualized intramuscular fatty mass in the proximal left adductor volodymyr musculature. Favor intramuscular lipoma although correlate clinically for palpable mass or perception of increasing mass effect, consider nonemergent MRI evaluation for full visualization/characterization. 5. Additional nonemergent findings detailed above. Dictated and Authenticated by: Mike Mckeon MD. Ordering:JILLIAN Huang MD
[2023-07-12] MEDS: metroNIDAZOLE 500 MG TAB PO (20:54)
[2023-07-12] MEDS: levoFLOXacin 500 MG, levoFLOXacin 250 MG 750 MG PO (20:54)
== END 2023-07-12 20:55 | disposition home or self-care (01) ==
PROVIDERS: Emergency Provider Emergency Medicine; PCP Nurse Practitioner Family
DX: K57.32 Diverticulitis of large intestine without perforation or abscess without bleeding (principal); Z90.49 Acquired absence of other specified parts of digestive tract
CPT/HCPCS: 80053; 83690; 99285; 74177; 83735; 85025; 99284; J3490